=== PATIENT | male | born 1935 | race Caucasian/White ===

== ENCOUNTER 2017-04-16 16:18 | Emergency (ER) | payer MEDICARE, BC ==
[2017-04-16 16:42] VITALS: BP 143/75
[2017-04-16] MEDS ORDERED: Cephalexin 500 MG Cap PO ONE (17:06)
--- NOTE | 2017-04-16 17:11 | EDM.PDOC ---
ED HPI GENERAL MEDICAL PROBLEM - General Chief Complaint: Upper Extremity Injury/Pain Stated Complaint: POSS INFECTED FINGER Time Seen by Provider: 04/16/17 16:55 Source of Information: Reports: Patient History Limitations: Reports: No Limitations - History of Present Illness INITIAL COMMENTS - FREE TEXT/NARRATIVE: Patient is a 82-year-old male who presents to the ED with concerns of having infection to a laceration located distal phalanx of the right index finger requiring sutures approximately April 12, 2017. 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 He received sutures in the local ER in [place]. He is driving home to [place] and thus has been noticing increased redness and drainage to the laceration site and thus stopped at this ER since its on the way. Has been cleansing the site with soap and water and reapplying Triple Antibiotic ointment to the affected finger. Has noticed mild swelling and worsening pain. Denies any fever/chills, nausea/vomiting, redness extending up his finger, or any additional complaints. Tetanus status is up-to-date. He has no allergies to medications. He does not take any medications currently and denies any other past medical history as well. Right 2-Index finger Pain Score (Numeric/FACES): 2 - Related Data Allergies Allergy/AdvReac Type Severity Reaction Status Date / Time No Known Allergies Allergy Verified 04/16/17 16:49 Home Meds: Home Meds Cephalexin [Keflex] 500 mg PO Q6HR #28 cap 04/16/17 [Rx] Past Medical History - Past Surgical History GI Surgical History: Reports: Hernia, Inguinal Social & Family History - Tobacco Use Smoking Status *Q: Never Smoker - Caffeine Use Caffeine Use: Reports: Coffee, Soda - Recreational Drug Use Recreational Drug Use: No Review of Systems - Review of Systems Review Of Systems: ROS reveals no pertinent complaints other than HPI. ED EXAM, GENERAL - Physical Exam Exam: See Below Exam Limited By: No Limitations General Appearance: Alert, WD/WN, No Apparent Distress Ears: Hearing Grossly Normal Nose: Normal Inspection Throat/Mouth: Normal Voice, No Airway Compromise Neck: Normal Inspection, Supple Respiratory/Chest: No Respiratory Distress, Lungs Clear, Normal Breath Sounds, No Accessory Muscle Use Cardiovascular: Normal Peripheral Pulses, Regular Rate, Rhythm Extremities: Other (Approximately 2 cm laceration to the distal phalanx of the right index finger with sutures in place. Mild erythema with yellowish discharge coming from the laceration site. No redness extending up his finger. Minimal swelling present. Mild pain with palpation. No sensory/motor deficits noted.) Neurological: Alert, Oriented, Normal Cognition Psychiatric: Normal Affect, Normal Mood Skin Exam: Warm, Dry, Normal Color Course - Vital Signs Last Recorded V/S: Last Vital Signs Temp 97.8 F 04/16/17 16:41 Pulse 74 04/16/17 16:41 Resp 20 04/16/17 16:41 BP 143/75 H 04/16/17 16:41 Pulse Ox 95 04/16/17 16:41 - Orders/Labs/Meds Meds: Medications Discontinued Medications Generic Name Dose Route Start Last Admin Trade Name Danica PRN Reason Stop Dose Admin Cephalexin 500 mg 04/16/17 17:06 04/16/17 17:19 Keflex PO 04/16/17 17:07 500 mg ONETIME ONE Administration - Re-Assessments/Exams Free Text/Narrative Re-Assessment/Exam: Right index finger: laceration to the distal phalanx. Sutures intact with area of yellowish discharge and increased redness. Patient has no history of MRSA. Ordered Keflex 500mg PO. Discharge instructions as documented. Departure - Departure Time of Disposition: 17:08 Disposition: Home, Self-Care 01 Condition: Good Clinical Impression: Infected finger laceration Qualifiers: Encounter type: initial encounter Qualified Code(s): S61.219A - Laceration without foreign body of unspecified finger without damage to nail, initial encounter - Discharge Information Prescriptions: Cephalexin [Keflex] 500 mg PO Q6HR #28 cap Instructions: Laceration Care, Adult, [id number] Forms: ED Department Discharge Additional Instructions: Take the full course of antibiotic as prescribed. Utilize Tylenol Motrin as needed for pain. If the redness and drainage persist and getting worse over the next 3 days please follow up with your primary care provider or return to the ED for further evaluation treatment. Keep area clean and dry. Cleanse site twice daily. Reapply Triple Antibiotic ointment and dressing if continue to drain. Follow-up with PCP 12 days from injury to have sutures removed.
== END 2017-04-16 17:20 | disposition home or self-care (01) ==
LOC: JD.ED 16:18
DX: S61.210A Laceration without foreign body of right index finger without damage to nail, initial encounter (principal); Z98.890 Other specified postprocedural states; W27.8XXA Contact with other nonpowered hand tool, initial encounter
CPT/HCPCS: 99283; A9270